=== PATIENT | male | born 1980 | race Caucasian/White ===

== ENCOUNTER 2017-04-28 19:09 | Emergency (ER) | payer SELFPAY ==
[~2017-04-28] VITALS: Ht 157.5 cm; Wt 68.0 kg
[2017-04-28 20:20] VITALS: Ht 157.5 cm; Wt 68.0 kg
== END 2017-04-29 00:32 | disposition left against medical advice (07) ==
LOC: FTE 19:09
DX: Z53.21 Procedure and treatment not carried out due to patient leaving prior to being seen by health care provider (principal)